=== PATIENT | male | born 1930 | race Caucasian/White ===

== ENCOUNTER 2017-02-13 15:41 | Emergency (ER) | payer MEDICARE, OTHER ==
[2017-02-13 16:38] LABS: BASOPHIL 0.2 % (0-2); EOSINOPHIL 1.4 % (0-7); HCT 36.6 % (42.0-52.0); HGB 12.3 g/dl (13.2-18.0); LYMPHOCYTE 23.2 % (15-48); MCH 29.1 pg (25.0-31.0); MCHC 33.6 g/dL (32.0-36.0); MCV 86.5 fL (78.0-100.0); MONOCYTE 7.9 % (0-12); MPV 8.4 fL (6.0-9.5); NEUTROPHIL 67.3 % (41-80); PLT 185 K/uL (150-400); RBC 4.23 M/uL (4.70-6.00); RDW 13.7 % (11.5-14.0); WBC 5.2 K/uL (4.0-10.5)
[2017-02-13 17:01] LABS: TROPONIN T < 0.010 ng/mL
[2017-02-13 17:02] LABS: ALBUMIN 3.6 g/dL (3.4-4.8); BILIRUBIN - TOTAL 0.3 mg/dL (0.1-1.0); CREATININE 1.8 mg/dL (0.7-1.2); GLOBULIN (CALCULATION) 2.5 g/dL (2.2-4.2); POTASSIUM 4.6 mmol/L (3.5-5.1); TOTAL PROTEIN 6.1 g/dL (6.4-8.3)
[2017-02-13 17:03] LABS: CKMB 6.44 ng/mL (0.97-4.94)
[2017-04-18] MEDS ORDERED: LEVAQUIN750 MG PO (11:28)
[2017-04-18] MEDS ORDERED: NORVASC5 MG PO (11:29)
[2017-04-18] MEDS ORDERED: BUMEX1 MG PO (11:30)
[2017-04-18] MEDS ORDERED: NIFEREX150 MG PO (11:30)
[2017-04-18] MEDS ORDERED: SYNTHROID88 MCG PO (11:30)
[2017-04-18] MEDS ORDERED: TOPROL XL 50 MG50 MG PO (11:31)
[2017-04-18] MEDS ORDERED: ASPIRIN CHEWABL81 MG PO (11:31)
[2017-04-18] MEDS ORDERED: LOVASTATIN40 MG PO (11:32)
[2017-04-18] MEDS ORDERED: PROTONIX 40MG T40 MG PO (11:33)
[2017-04-18] MEDS ORDERED: CARDURA2 MG PO (11:33)
[2017-04-18] MEDS ORDERED: PROZAC20 MG PO (11:33)
[2017-04-18] MEDS ORDERED: LOVAZA1 GM PO (11:34)
[2017-04-18] MEDS ORDERED: VITAMIN B-121000 MC1 PO (11:34)
[2017-04-18] MEDS ORDERED: GERITOL COMPLE1 EACH PO (11:34)
[2017-04-18] MEDS ORDERED: VITAMIN D-32000 UNI1 PO (11:35)
[2017-04-18] MEDS ORDERED: CLONAZEPAM0.5 MG PO (11:36)
== END 2017-02-13 17:55 | disposition home or self-care (01) ==
LOC: FER 15:41
PROVIDERS: Emergency Medicine
DX: J18.9 Pneumonia, unspecified organism (principal); I10 Essential (primary) hypertension; Z88.0 Allergy status to penicillin; Z99.81 Dependence on supplemental oxygen; Z98.890 Other specified postprocedural states; Z79.899 Other long term (current) drug therapy
CPT/HCPCS: 36415; 71020; 80053; 82150; 82553; 83690; 84484; 85025; 93005; 94640